=== PATIENT | male | born 1965 | race Caucasian/White ===

== ENCOUNTER 2018-10-07 14:21 | Outpatient (CLI) | payer OTHER, SELFPAY ==
[2018-10-07 15:07] LABS: HCT 39.8 % (40.0-50.0); HGB 13.7 g/dL (13.5-17.5); Mean Corp. HGB Concentration 34.4 g/dL (32.0-36.0); Mean Corpuscular Volume 87.3 fL (80-95); Mean Platelet Volume 8.7 fL (8.0-11.0); Platelet Count 373 x1000/uL (130-400); RBC 4.56 m/cumm (4.50-6.00); RBC Distribution Width 13.7 % (11.8-14.1); White Blood Cell Count 7.71 k/cumm (4.4-10.8)
[2018-10-07 15:57] LABS: ALT 25 U/L (12-78); AST 18 U/L (15-37); Albumin 4.8 g/dL (3.4-5.0); Alkaline Phosphatase 75 U/L (46-116); BUN 17 mg/dL (7-18); Bilirubin, Total 0.4 mg/dL (0.2-1.0); CREATININE 0.92 mg/dL (0.70-1.30); Calcium 9.4 mg/dL (8.5-10.1); Chloride 99 mmol/L (98-107); Glucose 92 mg/dL (70-100); Potassium 4.6 mmol/L (3.5-5.1); Sodium 138 mmol/L (136-145); Total Protein 8.1 g/dL (6.4-8.2)
== END 2018-10-07 14:41 ==
PROVIDERS: PCP Nurse Practitioner; Visit Provider Psychiatry & Neurology Neurology
DX: G40.919 Epilepsy, unspecified, intractable, without status epilepticus (principal)
CPT/HCPCS: 36415; 80053; 85027

== ENCOUNTER 2019-02-11 13:08 | Outpatient (CLI) | payer OTHER, SELFPAY ==
[2019-02-11 11:13] LABS: Cholesterol 191 mg/dL (50-200); HDL Cholesterol 46 mg/dL (40-60); LDL CHOLESTEROL 122 mg/dL (<100); Triglyceride 57 mg/dL (30-150)
== END 2019-02-11 13:28 ==
PROVIDERS: PCP Nurse Practitioner; Visit Provider Nurse Practitioner
DX: E78.00 Pure hypercholesterolemia, unspecified (principal); G40.919 Epilepsy, unspecified, intractable, without status epilepticus; Z79.899 Other long term (current) drug therapy
CPT/HCPCS: 36415; 80061; 83721

== ENCOUNTER 2019-11-04 02:39 | Outpatient (CLI) | payer OTHER, SELFPAY ==
[2019-11-04 14:40] LABS: HCT 37.3 % (40.0-50.0); HGB 12.6 g/dL (13.5-17.5); Mean Corp. HGB Concentration 33.8 g/dL (32.0-36.0); Mean Corpuscular Hemoglobin 29.8 pg (27.0-33.0); Mean Corpuscular Volume 88.2 fL (80-95); Platelet Count 385 x1000/uL (130-400); RBC 4.23 m/cumm (4.50-6.00); RBC Distribution Width 13.5 % (11.8-14.1); White Blood Cell Count 6.54 k/cumm (4.4-10.8)
[2019-11-04 15:51] LABS: ALT 28 U/L (16-63); AST 18 U/L (15-37); Albumin 4.4 g/dL (3.4-5.0); Alkaline Phosphatase 69 U/L (46-116); Anion Gap 11.4 mmol/L (3-11); BUN 20 mg/dL (7-18); Bilirubin, Total 0.3 mg/dL (0.2-1.0); CO2 26.6 mmol/L (21.0-32.0); CREATININE 0.72 mg/dL (0.70-1.30); Calcium 9.1 mg/dL (8.5-10.1); Chloride 102 mmol/L (98-107); Glucose 100 mg/dL (74-106); Potassium 4.2 mmol/L (3.5-5.1); Sodium 140 mmol/L (136-145); Total Protein 7.3 g/dL (6.4-8.2)
== END 2019-11-04 02:59 ==
PROVIDERS: PCP Nurse Practitioner; Visit Provider Psychiatry & Neurology Neurology
DX: G40.909 Epilepsy, unspecified, not intractable, without status epilepticus (principal)
CPT/HCPCS: 36415; 80053; 85027

== ENCOUNTER 2021-08-08 02:37 | Outpatient (CLI) | payer OTHER, SELFPAY ==
[2021-08-08 10:10] LABS: HCT 37.7 % (40.0-50.0); HGB 12.9 g/dL (13.5-17.5); MCHC 34.2 % (32.0-36.0); MCV 87.7 fL (80-95); Platelet Count 339 10^3/uL (130-400); RDW 12.7 % (11.8-14.1); RDW-SD 40.5 fL; WBC 5.67 10^3/uL (4.4-10.8)
[2021-08-08 11:02] LABS: ALT 27 U/L (16-63); AST 16 U/L (15-37); Albumin 4.3 g/dL (3.4-5.0); Alkaline Phosphatase 75 U/L (46-116); Anion Gap 8.8 mmol/L (3-11); BUN 14 mg/dL (7-18); Bilirubin, Total 0.3 mg/dL (0.2-1.0); CO2 29.2 mmol/L (21.0-32.0); CREATININE 0.9 mg/dL (0.70-1.30); Chloride 100 mmol/L (98-107); Glucose 118 mg/dL (74-106); Potassium 4.5 mmol/L (3.5-5.1); Sodium 138 mmol/L (136-145); Total Protein 7.4 g/dL (6.4-8.2)
[2021-08-08 11:04] LABS: Calculated LDL 122 mg/dL (<100); Cholesterol 184 mg/dL (<200); HDL Cholesterol 44 mg/dL (40-60); Triglyceride 94 mg/dL (<150)
[2021-08-08 18:00] LABS: PSA, Screening 0.5 ng/mL (0.0-3.5)
== END 2021-08-08 02:38 | disposition home or self-care (01) ==
LOC: LBO 02:37
PROVIDERS: Psychiatry & Neurology Neurology; PCP Nurse Practitioner; Visit Provider Nurse Practitioner
DX: Z13.220 Encounter for screening for lipoid disorders; R39.11 Hesitancy of micturition; Z00.00 Encounter for general adult medical examination without abnormal findings; Z12.5 Encounter for screening for malignant neoplasm of prostate
CPT/HCPCS: 36415; 80053; 80061; 84153; 85027

== ENCOUNTER 2022-07-02 07:23 | Day surgery (SDC) | payer OTHER, SELFPAY ==
--- NOTE | 2022-07-02 06:55 | COLE_ITS ---
Colonoscopy Report Date of procedure: 07/02/22 Pre-op diagnosis general: Colon cancer Screening Post-op diagnosis procedure note: same Procedure: Colonoscopy Surgeon: Smita Celestin Anesthesia Type: General:No Airway Estimated blood loss (mL): 0 Pathology: none sent Complications: None Disposition: same day Indications: The patient? is a pleasant 57 -year-old male who is here to discuss another screening colonoscopy. ? He denies any changes in bowel habits, melena, hem atochezia, unintentional weight loss or family history of colon cancer.? The procedure and risks were discussed.? The prep was reviewed in detail.? Risks, benefits and complications have been reviewed. Complications include but are not limited to bleeding, pain, perforation, missed small lesion/polyp, sore throat, aspiration and adverse reaction to the medications. Questions were entertained and answered to their satisfaction and they wished to proceed. No guarantees were given or implied. Prep: Miralax/Dulcolax Procedure Start Time: 09:18 Procedure End Time: :34 Retraction Time: 6 minutes Findings: Normal colonoscopy Procedure Description: After informed consent was obtained the patient was taken to the procedure room and placed in a left decubitous position. Monitors were applied and a time out was done. The patients name, date of , procedure, allergies to medications and metal in their body was reviewed. The patient was then sedated. Once sedated and comfortable a rectal exam was done. External exam was normal. Internal exam revealed a normal sphincter tone and no palpable masses. The prostate felt smooth but enlarged. The scope was then introduced and retro-flexed. No internal hemorrhoids, polyps or masses were identified on retro-flexion. The scope was then advanced to the cecum without difficulty. The ileocecal vlave and appendiceal orifice were identified. The prep was good. The scope was then slowly retracted over 6 minutes back into the rectum. There were no Polyps and there was no diverticulosis noted. The scope was removed and the patient was woken up and taken back to Same day surgery in stable condition. The patient tolerated the procedure well and there were no immediate complications. Follow up: The patient should follow up in 10 years unless they develop changes in bowel habits or other new gastrointestinal complaints.
--- NOTE | 2022-07-02 06:56 | W.PM.DSUDISC ---
Discharge Plan Disposition Patient Disposition: HOME Condition: Good Discharge Details Reason For Visit: colonoscopy Attending Provider: Smita Celestin Primary Care Provider: Grace Robert Home Meds and New Rx's Prescriptions: Continued felbamate 600 mg tablet 600 mg PO .5 x per day Qty: 450 3RF Rx Instructions: 5 x per day carbamazepine 200 mg tablet 200 mg PO QID Qty: 360 3RF Rx Instructions: 4 x per day fluticasone propion-salmeterol [Advair Diskus] 100-50 mcg/dose blister with device 1 ea Inhalation BID Qty: 1 12RF ibuprofen 200 MG capsule 200 - 400 mg PO PRN albuterol sulfate 90 mcg/actuation HFA aerosol inhaler 2 puff inhalation Q6H PRN (Reason: bronchospasm) Qty: 8.5 6RF Discharge Instructions Additional Instructions: Findings: Normal Follow up: 10 years Please call if you develop: fevers >101.5 Nausea or Vomiting Abdominal pain that is not transient Rectal bleeding that is more then a tbsp A hard abdomen and inability to pass gas DAY SURGERY UNIT POST ENDOSCOPY INSTRUCTIONS Instructions for everyone who is given Anesthesia: For your safety, please do the following for the next 24 Hours: a. Do not drive or operate dangerous equipment b. Do not drink alcohol beverages or use any recreational drugs for the first 24 hours or while taking pain medications. The medications in your body may have a reaction that can be dangerous. c. Do not make any important decisions or sign any important papers 1. Generally there are no restrictions on your activity after a day or so has gone by, but you may feel a bit fatigued for a few days. 2. After you arrive home you may have a light meal and return to a normal diet as you can tolerate it without feeling sick to your stomach. 3. After surgery, you may feel pain or discomfort. This should be only transient, but if it persists please contact your doctor. 4. If there are any questions regarding the findings of your procedure, please feel free to contact your doctor. 6. If you are unable to contact your doctor with a problem, contact the hospital at [phone]. 7. Continue all your regular medications unless directed otherwise. I understand the above instructions and have no questions. Signature of Patient or Responsible Adult Escort Date/Time Name of Responsible Adult Escort Signature of Nurse Date/Time Activity:: Activity as Tolerated Diet:: As Tolerated Discharge Orders Discharge Orders: Discharge Order (Routine); Ordered 07/02/22 Ordered By: Smita Celestin
--- NOTE | 2022-07-02 07:05 | W.ANESPRE ---
General Info Date of Service Date Performed: 07/02/22 Height: 5 ft 11 in Weight: 107.246 kg Body Mass Index (BMI): 33.0 Surgical Procedure: Operation Date: 07/02/22 09:05 Proposed Procedure Side Surgeon p Sonali Celestin MD Meds Allergies and Home Medications Allergies Allergy/AdvReac Type Severity Reaction Status Date / Time oxycodone HCl [From Percocet] Allergy Mild unknown Verified 07/02/22 08:04 acetaminophen [From Percocet] Allergy Unknown unknown Verified 07/02/22 08:04 Influenza Virus Vaccines AdvReac Unknown abdominal Verified 07/02/22 08:04 and arm hives reported 24 hours after vaccine Home Medication Medication Instructions Recorded ibuprofen 200 mg capsule 200 - 400 mg PO PRN 08/19/16 fluticasone 100 mcg-salmeterol 50 1 ea inhalation BID #1 ea 07/30/21 mcg/dose blistr powdr for inhalation (Advair Diskus) carbamazepine 200 mg tablet 200 mg PO QID #360 tabs 10/01/21 felbamate 600 mg tablet 600 mg PO .5 x per day #450 tabs 10/01/21 albuterol sulfate 90 mcg/actuation 2 puff inhalation Q6H PRN 05/14/22 aerosol inhaler bronchospasm #8.5 grams Current Visit Medications: Current Medications Generic Name Dose Route Start Last Admin Trade Name Freq PRN Reason Stop Dose Admin Hyoscyamine Sulfate 0.125 mg 07/02/22 06:57 Hyoscyamine 0.125 Mg Sl/Oral/Chew SL DIRECTED PRN Ringer's Solution 1,000 mls @ 80 mls/hr 07/02/22 06:00 IV 07/31/22 23:59 [facility]ION [facility] IV Miscellaneous Supplies 1 each 07/02/22 06:00 Iv Access IV 07/31/22 23:59 DIRECTED BERT Ondansetron HCl 4 mg 07/02/22 06:57 Ondansetron 4 Mg/2 Ml Vial IVP Q4H PRN PRN Nausea / Vomiting Sodium Chloride 0 ml 07/02/22 06:00 Normal Saline Flush 10 Ml Syr IV 07/31/22 23:59 PRN PRN Sodium Chloride 0 ml 07/02/22 06:00 Normal Saline 10 Ml Vial IJ 07/31/22 23:59 DIRECTED PRN Sterile Water 0 ml 07/02/22 06:00 Water,Injection,Sterile 10 Ml Vial IJ 07/31/22 23:59 DIRECTED PRN PFSH Active Problems Active Problems: Problem Status Onset Code Diastasis recti M62.08 Urinary frequency R35.0 Decreased urine stream R39.198 Urinary hesitancy R39.11 Screening for cholesterol level Z13.220 Routine medical exam Z00.00 Routine medical exam Z00.00 Focal epilepsy G40.109 Sensorineural hearing loss, asymmetrical 08/29/14 H90.5 Rosacea 01/09/12 L71.9 Nonintractable epilepsy without status epilepticus 01/09/16 G40.909 Epilepsy, unspecified, intractable, without status epilepticus 06/06/13 G40.919 Asthma 06/20/13 J45.909 Cholecystitis K81.9 Seizure disorder G40.909 Asthma J45.909 History of Surgical Procedure Z98.89 Medical History Medical History Asthma Ptosis, right 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) Rosacea Sensorineural hearing loss Medical History Comments:: Seizures under control with medication Surgical History Surgical History S/P cholecystectomy S/P colonoscopy (~2011) [place]- normal S/P skin biopsy S/P vasectomy Tobacco Smoking/Tobacco Use Status: Never Passive smoking exposure: No Second hand exposure: No Alcohol Alcohol Intake: current Alcohol intake frequency: a few times a week Substance Use Substance use: Never Substance use type: does not use Vital Signs and Lab Results Lab Results Blood Type / Crossmatch: No Data to Display Complete Blood Count: No Data to Display Complete Metabolic Panel: No Data to Display Liver Function Panel: No Data to Display Coagulation Panel: No Data to Display Cardiac Panel: No Data to Display Arterial Blood Gas: No Data to Display Venous Blood Gas: No Data to Display Pancreas Panel: No Data to Display Thyroid Panel: No Data to Display Infectious Disease: No Data to Display Blood Cultures: No Data to Display Toxicology Panel: No Data to Display Anesthesia Assessment and Plan Anesthesia History Personal History: No History of Anesthesia Complications Family History: No Family History of Anesthesia Complications Exercise Tolerance Exercise Tolerance: Metabolic Equivalents>4 Pertinent Negatives Pertinent Negatives: No Symptoms of GERD, No Major Cardiovascular Symptoms or Complaints, No Major Pulmonary Symptoms or Complaints and No History of CVA/TIA Cardiac & Pulmonary Exam Cardiac Exam: Normal S1/S2 Heart Sounds Pulmonary Exam: Clear Bilateral Breath Sounds Implantable Cardiac Device Does patient have a Pacemaker or an ICD?: No Airway Exam Known Difficult Airway: No Mallampati Class: 2 Mouth Opening: Narrow (< 3cm) Thyromental Distance: Greater than 3 cm Neck Range of Motion: Full ROM Neck Circumference: Normal Teeth Condition: Normal Dentition ASA Classification ASA Score: ASA 2 Emergency Case?: No NPO Status NPO Status: NPO Clears >2 hours, Solids >8 hours Anesthesia Plan Resuscitation Status: Full Code Anesthesia Technique: General Anesthesia Airway Planned: Natural Airway Monitors Used: Standard Monitors
[2022-07-02 08:00] VITALS: BP 143/81; PULSE 82; RESP 18; TEMP 36.7; O2SAT 96
[2022-07-02] MEDS: Lactated Ringers 1,000 ML 80 ML IV (08:20)
[2022-07-02 09:19] VITALS: BMI 33.0
[2022-07-02 09:46] VITALS: BP 138/84; PULSE 95; RESP 16; TEMP 36.3; O2SAT 95
--- NOTE | 2022-07-02 10:14 | W.ANESPOSTOP ---
Postoperative Evaluation Date, Time and Location Date Performed: 07/02/22 Time Performed: 10:14 Patient Location: Day Surgery Unit Vital Signs Most Recent Imported Vital Signs: Most Recent Vital Signs Temp Pulse Resp BP Pulse Ox 36.3 C L 95 H 16 138/84 95 07/02/22 09:46 07/02/22 09:46 07/02/22 09:46 07/02/22 09:46 07/02/22 09:46 Pain Score Most Recent Pain Score: Most Recent Pain Score Pain Level 0 07/02/22 09:46 Assessment Mental Status: Awake (Alert & Oriented to Patient Baseline) Airway and Respiratory Function: Patent airway with normal (patient baseline) respiratory exam Cardiovascular Function: Hemodynamically Stable Hydration Status: Adequately Hydrated Nausea & Vomiting: No Nausea or Vomiting Pain: Pt. Denies Any Pain Peripheral Nerve Block: Patient did not receive a nerve block
[2022-07-02 10:15] VITALS: BP 151/88; PULSE 80; RESP 16; TEMP 36.6; O2SAT 96
== END 2022-07-02 10:36 | disposition home or self-care (01) ==
PROVIDERS: PCP Nurse Practitioner; Visit Provider Surgery
PROC: 0DJD8ZZ Inspection of Lower Intestinal Tract, Via Natural or Artificial Opening Endoscopic (ICD-10-PCS; CPT 45378; principal; 2022-07-02 09:00)
DX: Z12.11 Encounter for screening for malignant neoplasm of colon (principal); J45.909 Unspecified asthma, uncomplicated; G40.109 Localization-related (focal) (partial) symptomatic epilepsy and epileptic syndromes with simple partial seizures, not intractable, without status epilepticus
CPT/HCPCS: 45378

== ENCOUNTER 2022-09-26 02:41 | Outpatient (CLI) | payer OTHER, SELFPAY ==
[2022-09-26 07:31] LABS: HGB 13.8 g/dL (13.5-17.5); MCH 29.8 pg (27.0-33.0); MCHC 33.7 % (32.0-36.0); MCV 89 fL (80-95); MPV 8.3 fL (8.0-11.0); Platelet Count 314 10^3/uL (130-400); RBC 4.63 10^6/uL (4.36-5.78); RDW 13.2 % (11.8-14.1); RDW-SD 42.9 fL; WBC 5.59 10^3/uL (4.4-10.8)
[2022-09-26 08:35] LABS: ALT 22 U/L (16-63); AST 16 U/L (15-37); Albumin 4.1 g/dL (3.4-5.0); Alkaline Phosphatase 72 U/L (46-116); Anion Gap 5.2 mmol/L (3-11); BUN 15 mg/dL (7-18); Bilirubin, Total 0.3 mg/dL (0.2-1.0); CO2 30.8 mmol/L (21.0-32.0); CREATININE 0.9 mg/dL (0.70-1.30); Calcium 9.2 mg/dL (8.5-10.1); Calculated LDL 115 mg/dL (<100); Chloride 101 mmol/L (98-107); Cholesterol 189 mg/dL (<200); Glucose 105 mg/dL (74-106); HDL Cholesterol 53 mg/dL (40-60); Potassium 4.5 mmol/L (3.5-5.1); Sodium 137 mmol/L (136-145); Total Protein 7.8 g/dL (6.4-8.2); Triglyceride 109 mg/dL (<150)
== END 2022-09-26 02:42 | disposition home or self-care (01) ==
LOC: LBO 02:41
PROVIDERS: PCP Nurse Practitioner; Visit Provider Nurse Practitioner
DX: G40.109 Localization-related (focal) (partial) symptomatic epilepsy and epileptic syndromes with simple partial seizures, not intractable, without status epilepticus (principal); Z13.220 Encounter for screening for lipoid disorders
CPT/HCPCS: 36415; 80053; 80061; 85027

== ENCOUNTER 2023-08-23 15:51 | Emergency (ER) | payer OTHER, SELFPAY ==
[2023-08-23 15:53] VITALS: BP 166/86; PULSE 90; RESP 14; TEMP 37.2; O2SAT 97
--- NOTE | 2023-08-23 16:00 | DI.RAD_ITS ---
Exam(s) XR ANKLE RT COMPLETE XR TIB/FIB RT XR FOOT RT COMPLETE EXAM: XR ANKLE RT COMPLETE CLINICAL HISTORY: right leg injury. TECHNIQUE: 2D digital imaging was performed. Three views. COMPARISON: CR,XR XR FOOT RT COMPLETE from 08/23/2023 CR,XR XR TIB/FIB RT from 08/23/2023 FINDINGS: BONES: Displaced fracture visible in the anterior calcaneus. No additional fractures are seen in the remainder of the foot were in the tibia and fibula. No bony destructive lesion is seen. JOINTS: The ankle mortise is normally aligned. SOFT TISSUE: Swelling around malleoli. IMPRESSION: Anterior calcaneal fracture. DATA REPOSITORY: RADIATION DOSE DELIVERED:
--- NOTE | 2023-08-23 16:16 | ED.GENADUL_ITS ---
Discharge Plan Disposition Patient Disposition: Home Discharge Details Clinical Impression: Calcaneal fracture, Injury of leg, right Primary Care Provider: Grace Robert ED Provider: John Avendaño Home Meds and New Rx's Prescriptions: No Action carbamazepine 200 mg tablet 200 mg PO QID Qty: 360 3RF Rx Instructions: 4 x per day felbamate 600 mg tablet 600 mg PO .5 x per day Qty: 450 3RF Rx Instructions: 5 x per day fluticasone propion-salmeterol [Advair Diskus] 100-50 mcg/dose blister with de vice 1 ea Inhalation BID Qty: 1 12RF ibuprofen 200 MG capsule 200 - 400 mg PO PRN albuterol sulfate 90 mcg/actuation HFA aerosol inhaler 2 puff inhalation Q6H PRN (Reason: bronchospasm) Qty: 8.5 6RF Discharge Instructions Instructions: Calcaneal Fracture (ED) Additional Instructions: Continue Motrin and Tylenol as needed for pain Continue wearing boot and using crutches for ambulation. no weight bearing. keep foot elevated as much as possible Ortho clinic here will contact you with treatment plan, either here or may need to go [place] [facility] [place] Referrals: Eddi Tamayo MD [ [facility] STAFF PHYSICIAN] - Medical Decision Making evaluation of right leg injury. patient is one week out. Initial differential includes fracture, less likely dislocation, ligamentous injury, soft tissue injury. He has no other injuries during the fall. All pain is localized to the right ankle and foot. Initial plan for pain control and imaging. Patient declines any narcotics at this time. 1715: Reviewed the imaging results. Radiology is reading a calcaneal fracture. Discussed with orthopedic surgery on-call. Recommended a CT scan to further evaluate fracture type. I reexamined the patient, he has no tenderness or injury to the left lower leg or the back. No midline back tenderness step-off or deformity. Patient updated on imaging findings and plan. 1740: CT imaging reviewed, fracture noted. Patient will be discharged at this time. He understands to continue wearing his boot and using the crutches. He should be nonweightbearing at this time. Orthopedics will review the CT imaging and contact the patient for an appropriate follow-up plan. If he is nonoperative, they will follow him here, if he requires operative repair, he will likely need to go to [facility] [place]. HPI General Date/Time Provider Initiated Documentation: 08/23/23 15:52 . Limitations to Documentation: no limitations . Information obtained by: patient . HPI Narrative: 58-year-old gentleman with past medical history including epilepsy presents for evaluation of right leg pain. He reports that 6 days ago he was on a ladder and the ladder slipped out and he fell to the ground. He landed with his right leg under the latter. He reports acute onset of pain in the right ankle. Associated with bruising and swelling. He treated this with crutches and a Aircast at home. He has been walking using these items, but having some significant pain with bearing weight. He denies hitting his head or having any other injuries during the fall. He has been taking Motrin and Tylenol with some relief of the pain. Related Data Home Medications Medication Instructions Recorded Confirmed ibuprofen 200 mg capsule 200 - 400 mg PO PRN 08/19/16 08/23/23 fluticasone 100 mcg-salmeterol 50 1 ea inhalation BID #1 ea 07/30/21 08/23/23 mcg/dose blistr powdr for inhalation (Advair Diskus) albuterol sulfate 90 mcg/actuation 2 puff inhalation Q6H PRN 05/14/22 08/23/23 aerosol inhaler bronchospasm #8.5 grams carbamazepine 200 mg tablet 200 mg PO QID #360 tabs 09/30/22 08/23/23 felbamate 600 mg tablet 600 mg PO .5 x per day #450 tabs 09/30/22 08/23/23 Previous Rx's Medication Instructions Recorded fluticasone 100 mcg-salmeterol 50 1 ea inhalation BID #1 ea 07/30/21 mcg/dose blistr powdr for inhalation (Advair Diskus) albuterol sulfate 90 mcg/actuation 2 puff inhalation Q6H PRN 05/14/22 aerosol inhaler bronchospasm #8.5 grams carbamazepine 200 mg tablet 200 mg PO QID #360 tabs 09/30/22 felbamate 600 mg tablet 600 mg PO .5 x per day #450 tabs 09/30/22 Allergies Allergy/AdvReac Type Severity Reaction Status Date / Time oxycodone HCl [From Percocet] Allergy Mild unknown Verified 08/23/23 16:12 acetaminophen [From Percocet] Allergy Unknown unknown Verified 08/23/23 16:12 Influenza Virus Vaccines AdvReac Unknown abdominal Verified 08/23/23 16:12 and arm hives reported 24 hours after vaccine General Stated Complaint: Orthopedic АЛЕКСАНДР: 4 PFSH All Active Problems Calcaneal fracture (Acute) Injury of leg, right (Acute) Diastasis recti (Acute) Urinary frequency (Acute) Decreased urine stream (Acute) Urinary hesitancy (Acute) Screening for cholesterol level (Acute) Routine medical exam (Acute) Routine medical exam (Acute) Focal epilepsy (Acute) Sensorineural hearing loss, asymmetrical (Acute 08/29/14) right ear Rosacea (Acute 01/09/12) Nonintractable epilepsy without status epilepticus (Acute 01/09/16) Epilepsy, unspecified, intractable, without status epilepticus (Acute 06/06/13) Dr Galo follows Asthma (Acute 06/20/13) Cholecystitis (Acute) Seizure disorder (Chronic) Asthma (Chronic) History of Surgical Procedure (Chronic) a. Laparoscopic cholecystectomy. b. Vasectomy. 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) Asthma Sensorineural hearing loss Rosacea Surgical History S/P colonoscopy (~2011) [place]- normal S/P skin biopsy S/P vasectomy S/P cholecystectomy Family History Mother Essential hypertension Parkinsons disease Father , colon CA Personal history of malignant neoplasm colon Alcohol abuse Son Testicular cancer Social History Smoking/Tobacco Use Status: Never Second Hand Exposure: No Smoking risk assessment performed?: Yes Alcohol Intake: current Alcohol Intake frequency: holidays/special occasions only Alcohol type: beer Drug use: Never Substance use type: does not use Adopted: No Caregiver/Support person: No Foster care: No Household members: spouse Housing: house Number of Children: 1 number of grandchildren: 0 Communication Needs: Hard of Hearing Education Level: vocational Do you need help understanding health information?: Rarely current occupation: [employer]; [employer] Pets and animals: Yes Pets and animals: dog(s) Do you think of yourself as: straight/heterosexual Current gender identity: male What is your relationship status?: How often do you talk on the phone with friends or family?: twice per week Do you belong to any clubs or organized social groups?: no Panel score (0-1 are the most socially isolated patients): 1 What type of physical activity do you participate in: walking Frequency: daily Petra/Catholic: None Special petra needs: No Seatbelt use: always Helmet use: Yes Helmet use: always Drive intox or ride w/intox security patrol driver: No Working smoke detector in home: Yes Fire extinguisher in home: Yes Carbon monox detector in home: Yes Do you feel safe at home: Yes Do you feel safe in your relationship?: Yes Additional Social history: Unable to assess [facility] Ex[facility] Narrative Exam Narrative: Review of Systems: All systems reviewed & are unremarkable except as noted in HPI and below: CONSTITUTIONAL: Alert and oriented Well-developed, no acute distress HEENT: NACT EYES: PERRL, no conjunctival injection EARS: no external abnormality NOSE nares patent MOUTH Moist MM NECK: Symmetric, trachea midline, No thyromegaly THROAT oropharynx clear CVS: RRR, No murmurs or gallops. RESP: Unlabored respiratory effort, Clear to auscultation bilaterally GI: Soft, Nontender, Nondistended MSK: right LE with bruising noted to ankle and foot. knee non tender, full ROM. prox tib fib non tender. bruising and swelling around ankle and foot. tenderness along lateral foot. sensation intact. SKIN: Warm, Dry. No rashes or lesions. NEURO: No focal neurologic deficits. PSYCH: Appropriate mood and affect Course Vital Signs Vital signs: Vital Signs Temperature 37.2 C 08/23/23 15:53 Pulse 90 08/23/23 15:53 Respiratory Rate 14 08/23/23 15:53 Blood Pressure 166/86 H 08/23/23 15:53 Pulse Oximetry 97 08/23/23 15:53 Temperature 37.2 C 08/23/23 15:53 Temperature Source Skin 08/23/23 15:53 Pulse 90 08/23/23 15:53 Respiratory Rate 14 08/23/23 15:53 Respiratory Effort Normal 08/23/23 16:05 Blood Pressure 166/86 H 08/23/23 15:53 Pulse Oximetry 97 08/23/23 15:53 Oxygen Delivery Method Room Air 08/23/23 15:53 Oxygen Flow Rate 0 08/23/23 15:53 Pain Level 5 08/23/23 15:53 Comment ice, elevation, tylenol and ibuprofen 08/23/23 15:53
[2023-08-23] MEDS: Acetaminophen 500 MG TAB 1000 MG PO (16:18)
--- NOTE | 2023-08-23 17:00 | DI.CT_ITS ---
Exam(s) CT LOWER EXTREMITY RT WO EXAM: CT LOWER EXTREMITY RT WO CLINICAL HISTORY: calcaneal fracture. TECHNIQUE: Imaging Protocol: Axial computed tomography images with coronal and sagittal reformatted images were created and reviewed. CONTRAST MATERIAL: Noncontrast COMPARISON: CR,XR XR FOOT RT COMPLETE from 08/23/2023 FINDINGS: Bones: There is a markedly comminuted fracture of the anterior calcaneus with the main fracture compo nent extending in the coronal plane. Assessed and tack ileum is fracture. There is displacement at the anterior process with extension to the calcaneal cuboid joint. There is also extension of fractu re to the subtalar joint. Multiple small comminuted fragments. No additional fracture bones are kaz ntified. No osteomyelitic changes are identified. No lytic or sclerotic lesions are identified. Joints: There is no significant joint space narrowing. No significant periarticular spurring. Soft Tissues: Soft tissue swelling around the malleoli in extending into the foot. IMPRESSION: Comminuted intra-articular fracture of the anterior calcaneus. RADIATION DOSE DELIVERED: Total DLP DATA REPOSITORY: All CT scans at this facility are submitted to the National Radiology Data Registry (NRDR) Dose Index Registry (DIR) with the [employer] (A[employer]). RADIATION OPTIMIZATION: All CT scans at this facility use at least one of these dose optimization te chniques: automated exposure control; mA and/or kV adjustment per patient size (includes targeted exa ms where dose is matched to clinical indication); or iterative reconstruction.
--- NOTE | 2023-08-23 17:04 | DI.VRAD_ITS ---
PROCEDURE INFORMATION: Exam: XR Right Foot Exam date and time: 08/23/2023 4:34 PM Age: 58 years old Clinical indication: Other: Right leg injury TECHNIQUE: Imaging protocol: Radiologic exam of the right foot. Views: 3 or more views. COMPARISON: CR XR ANKLE RT COMPLETE 23/08/2023 16:32 FINDINGS: Bones/joints: Small plantar and posterior calcaneal spur. Calcaneal fracture seen best on the oblique view. Soft tissues: Soft tissue swelling of the foot and ankle. IMPRESSION: Calcaneal fracture. Dictated and Authenticated by: Flori Cunningham MD. Ordering:[facility] Kateryna Izquierdo MD
--- NOTE | 2023-08-23 17:05 | DI.VRAD_ITS ---
PROCEDURE INFORMATION: Exam: XR Right Ankle Exam date and time: 08/23/2023 4:32 PM Age: 58 years old Clinical indication: Other: Right leg injury TECHNIQUE: Imaging protocol: Radiologic exam of the right ankle. Views: 3 or more views. COMPARISON: No relevant prior studies available. FINDINGS: Bones/joints: Calcaneal fracture with intra-articular involvement again noted. Soft tissues: Soft tissue swelling of the lower leg, ankle, and foot. IMPRESSION: Calcaneal fracture. Soft tissue swelling. Dictated and Authenticated by: Flori Cunningham MD. Ordering:JON Izquierdo MD
--- NOTE | 2023-08-23 17:07 | DI.VRAD_ITS ---
PROCEDURE INFORMATION: Exam: XR Right Tibia and Fibula Exam date and time: 08/23/2023 4:32 PM Age: 58 years old Clinical indication: Other: Right leg pain TECHNIQUE: Imaging protocol: Radiologic exam of the right tibia and fibula. Views: 2 views. COMPARISON: No relevant prior studies available. FINDINGS: Bones/joints: Calcaneal fracture seen in the medial aspect of the ankle. The tibia and fibula are intact. Soft tissues: Soft tissue swelling of the lower leg and ankle. IMPRESSION: 1. Calcaneal fracture. 2. The tibia and fibula are intact. Dictated and Authenticated by: Flori Cunningham MD. Ordering:FannyAYAN Izquierdo MD
[2023-08-23 17:54] VITALS: BP 145/69; PULSE 82; RESP 18; O2SAT 98
--- NOTE | 2023-08-23 17:54 | DI.VRAD_ITS ---
PROCEDURE INFORMATION: Exam: CT Right Lower Extremity Without Contrast, Foot Exam date and time: 08/23/2023 5:23 PM Age: 58 years old Clinical indication: Injury or trauma; Other: Fall from ladder; Fracture, traumatic; Closed fracture; Calcaneus; Right TECHNIQUE: Imaging protocol: CT of the right lower extremity without contrast was performed. Exam focused on the foot. COMPARISON: CR XR FOOT RT COMPLETE 23/08/2023 16:34 FINDINGS: Bones/joints: Comminuted intra-articular fracture dislocation of the calcaneus. Soft tissues: Soft tissue swelling of the lower leg, ankle, and foot. IMPRESSION: Markedly comminuted dislocated intra-articular calcaneal fracture. Dictated and Authenticated by: Flori Cunningham MD. Ordering:JON Izquierdo MD
== END 2023-08-23 18:06 | disposition home or self-care (01) ==
PROVIDERS: Emergency Provider Emergency Medicine; PCP Nurse Practitioner
DX: S92.061A Displaced intraarticular fracture of right calcaneus, initial encounter for closed fracture; W11.XXXA Fall on and from ladder, initial encounter; G40.909 Epilepsy, unspecified, not intractable, without status epilepticus
CPT/HCPCS: 99284; 73590; 73610; 73630; 73700

== ENCOUNTER → 2023-10-14 03:29 | Outpatient (CLI) | payer OTHER, SELFPAY ==
--- NOTE | 2023-10-14 | DI.RAD_ITS ---
Exam(s) XR HEEL RT OS CALCIS EXAM: XR HEEL RT OS CALCIS CLINICAL HISTORY: eval [id number] Closed displaced fx of body of Right calcaneus,initial. TECHNIQUE: 2D digital imaging was performed. COMPARISON: DX Ankle RT from 09/14/2023 FINDINGS: BONES: No acute fracture is present. No bony destructive lesion is seen. Calcaneal spurs are present . There is again seen a sideplate and screws in the anterior calcaneus. The fracture is less well v isualized. JOINTS: No dislocation present. SOFT TISSUE: Normal. IMPRESSION: Stable appearance of the right calcaneus. DATA REPOSITORY: RADIATION DOSE DELIVERED:
== END ==
PROVIDERS: PCP Nurse Practitioner; Visit Provider Student in an Organized Health Care Education/Training Program
DX: M77.31 Calcaneal spur, right foot (principal)
CPT/HCPCS: 73650

== ENCOUNTER → 2023-12-23 02:17 | Outpatient (CLI) | payer OTHER, SELFPAY ==
--- NOTE | 2023-12-23 | DI.RAD_ITS ---
Exam(s) XR HEEL RT OS CALCIS EXAM: XR HEEL RT OS CALCIS INDICATION: [id number] Closed fx rt calcaneus,routine healing. COMPARISON: CR XR HEEL RT OS CALCIS from 10/14/2023 TECHNIQUE: 2D digital imaging was performed. Two views. FINDINGS: Screw and plate fixation again noted at the distal calcaneus. There has been no change in fracture o r hardware alignment. No new abnormalities are seen. DATA REPOSITORY: RADIATION DOSE DELIVERED:
== END ==
PROVIDERS: PCP Nurse Practitioner; Visit Provider Student in an Organized Health Care Education/Training Program
DX: S92.011D Displaced fracture of body of right calcaneus, subsequent encounter for fracture with routine healing (principal); X58.XXXD Exposure to other specified factors, subsequent encounter
CPT/HCPCS: 73650

== ENCOUNTER 2024-01-22 02:17 | Outpatient (CLI) | payer OTHER, SELFPAY ==
[2024-01-22 13:01] LABS: Abs Immature Grans 0.02 10^3/uL (0.0-0.06); Absolute Basophil Count 0.02 10^3/uL (0.0-0.2); Absolute Eosinophil Count 0.06 10^3/uL (0.0-0.7); Absolute Lymphocyte Count 1.46 10^3/uL (1.2-3.4); Absolute Monocyte Count 0.58 10^3/uL (0.1-0.8); Absolute Neutrophil Count 4.41 10^3/uL (1.2-6.7); Basophils % 0.3; Eosinophils % 0.9; HCT 38.3 % (40.0-50.0); HGB 13.2 g/dL (13.5-17.5); Immature Grans % 0.3; Lymphocytes % 22.3; MCH 30.6 pg (27.0-33.0); MCHC 34.5 % (32.0-36.0); MCV 89 fL (80-95); MPV 8.4 fL (8.0-11.0); Monocytes % 8.9; Neutrophils % 67.3; Platelet Count 361 10^3/uL (130-400); RBC 4.32 10^6/uL (4.36-5.78); RDW 14.1 % (11.8-14.1); RDW-SD 45.7 fL; WBC 6.55 10^3/uL (4.4-10.8)
[2024-01-22 13:35] LABS: ALT 39 U/L (16-63); AST 23 U/L (15-37); Albumin 4.4 g/dL (3.4-5.0); Alkaline Phosphatase 91 U/L (46-116); BUN 23 mg/dL (7-18); Bilirubin, Total 0.2 mg/dL (0.2-1.0); CREATININE 0.9 mg/dL (0.70-1.30); Calcium 9.2 mg/dL (8.5-10.1); Chloride 104 mmol/L (98-107); Estimated GFR 98.38 (mL/min/1.73m2); Glucose 119 mg/dL (74-106); Potassium 4.7 mmol/L (3.5-5.1); Sodium 141 mmol/L (136-145)
== END 2024-01-22 02:18 | disposition home or self-care (01) ==
LOC: LBO 02:20
PROVIDERS: PCP Nurse Practitioner; Visit Provider Psychiatry & Neurology Neurology
DX: G40.919 Epilepsy, unspecified, intractable, without status epilepticus (principal)
CPT/HCPCS: 36415; 80053; 85025

== ENCOUNTER 2025-02-08 02:21 | Outpatient (CLI) | payer OTHER, SELFPAY ==
[2025-02-08 15:38] LABS: Abs Immature Grans 0.02 10^3/uL (0.0-0.06); Absolute Basophil Count 0.03 10^3/uL (0.0-0.2); Absolute Eosinophil Count 0.04 10^3/uL (0.0-0.7); Absolute Lymphocyte Count 2.03 10^3/uL (1.2-3.4); Absolute Monocyte Count 0.53 10^3/uL (0.1-0.8); Basophils % 0.5 %; Eosinophils % 0.6 %; HCT 37.3 % (40.0-50.0); HGB 12.7 g/dL (13.5-17.5); Immature Grans % 0.3 %; Lymphocytes % 31.5 %; MCV 88 fL (80-95); Monocytes % 8.2 %; Neutrophils % 58.9 %; Platelet Count 340 10^3/uL (130-400); RBC 4.23 10^6/uL (4.36-5.78); RDW 13.3 % (11.8-14.1); WBC 6.45 10^3/uL (4.4-10.8)
[2025-02-08 17:42] LABS: ALT 31 U/L (16-63); AST 19 U/L (15-37); Albumin 4.3 g/dL (3.4-5.0); Alkaline Phosphatase 81 U/L (46-116); BUN 14 mg/dL (7-18); Bilirubin, Total 0.2 mg/dL (0.2-1.0); CREATININE 0.9 mg/dL (0.70-1.30); Chloride 98 mmol/L (98-107); Estimated GFR 97.78 (mL/min/1.73m2); Glucose 96 mg/dL (74-106); Potassium 4.3 mmol/L (3.5-5.1); Sodium 134 mmol/L (136-145); Total Protein 7.8 g/dL (6.4-8.2)
== END 2025-02-08 02:22 | disposition home or self-care (01) ==
PROVIDERS: PCP Nurse Practitioner Family; Visit Provider Psychiatry & Neurology Neurology
DX: G40.109 Localization-related (focal) (partial) symptomatic epilepsy and epileptic syndromes with simple partial seizures, not intractable, without status epilepticus (principal)
CPT/HCPCS: 36415; 80053; 85025

== ENCOUNTER 2025-09-06 01:53 | Outpatient (CLI) | payer OTHER, SELFPAY ==
[2025-09-06 16:57] LABS: Anion Gap 9.3 mmol/L (3-11); BUN 19 mg/dL (9-23); CO2 26.7 mmol/L (20.0-31.0); Calcium 8.7 mg/dL (8.3-10.6); Chloride 103 mmol/L (98-107); Glucose 96 mg/dL (74-106); Potassium 4.2 mmol/L (3.5-5.1); Sodium 139 mmol/L (136-145)
== END 2025-09-06 01:54 | disposition home or self-care (01) ==
LOC: LOS 01:53
PROVIDERS: PCP Nurse Practitioner Family; Visit Provider Psychiatry & Neurology Neurology
DX: E87.1 Hypo-osmolality and hyponatremia (principal)
CPT/HCPCS: 36415; 80048